=== PATIENT | male | born 1970 | race African-American/Black ===

== ENCOUNTER 2016-09-12 17:21 | Emergency (ER) | payer MEDICAID ==
[~2016-09-12] VITALS: Ht 175.3 cm; Wt 82.0 kg
[2016-09-12] MEDS ORDERED: SODIUM CHLORIDE 0.9% 1,000 ML IV ONE (19:07)
[2016-09-12] MEDS ORDERED: KETOROLAC 30MG/ML VIAL IV STA (19:07)
[2016-09-12 19:28] LABS: BASOPHILS % 0.5 % (0.0-2.0); DIFFERENTIAL COMMENT 0; EOSINOPHILS % 3.9 % (0.0-5.0); HEMATOCRIT. 36.8 % (42.0-52.0); HEMOGLOBIN. 12.2 g/dL (14.0-18.0); LYMPHOCYTES % 34.7 % (20.0-50.0); MEAN CORPUSCULAR HEMOGLOBIN 25.5 pg (28.0-32.0); MEAN CORPUSCULAR HGB CONC 33.2 g/dL (31.0-37.0); MEAN PLATELET VOLUME 7.8 fl (7.4-10.4); NEUTROPHILS % 50.9 % (40.0-76.0); PLATELET 203 x1000/uL (130-400); RED BLOOD CELL COUNT 4.78 mill/uL (4.7-6.1); RED CELL DISTRIBUTION WIDTH 14.8 % (11.6-14.6)
[2016-09-12 19:30] LABS: CHLORIDE 104 mEq/L (98-107); INDEX HEMOLYSI 1 (1-3); INDEX ICTERIC 1 (1-4); INDEX LIPEMIC 1 (1-3)
[2016-09-12 19:35] LABS: ALBUMIN 3.5 g/dL (3.4-5.0); ANION GAP 10; CALCIUM 8.4 mg/dL (8.5-10.1); CARBON DIOXIDE 30 mEq/L (21-32); UREA NITROGEN BLOOD 18 mg/dL (7-21)
[2016-09-12 19:37] LABS: ALANINE AMINOTRANSFERASE 15 IU/L (13-61); eGFR > 60 mL/min (>60)
[2016-09-12 19:43] LABS: CREATINE KINASE MB FRACTION 0.8 ng/mL (0.5-3.6)
[2016-09-12 20:22] LABS: CLARITY URINE CLEAR (CLEAR); COLOR URINE YELLOW (YELLOW); GLUCOSE URINE NEGATIVE (NEGATIVE); KETONES URINE NEGATIVE (NEGATIVE); LEUKOCYTE ESTERASE URINE NEGATIVE (NEGATIVE); NITRITE URINE NEGATIVE (NEGATIVE); OCCULT BLOOD URINE NEGATIVE (NEGATIVE); PH URINE 6.5 (4.5-8.0); PROTEIN URINE NEGATIVE (NEGATIVE); SPECIFIC GRAVITY URINE 1.029 (1.005-1.030)
[2016-09-12 21:04] LABS: *AMPHETAMINES SCREEN URINE NEGATIVE (NEGATIVE); *BARBITURATES SCREEN URINE NEGATIVE (NEGATIVE); *BENZODIAZEPINES SCREEN URINE NEGATIVE (NEGATIVE); *COCAINE SCREEN URINE NEGATIVE (NEGATIVE); CANNABINOID URINE SCREEN PRESUMTIVE POSITIVE (NEGATIVE); ECSTASY MDMA SCREEN URINE NEGATIVE (NEGATIVE); METHADONE URINE SCREEN NEGATIVE (NEGATIVE); OPIATES URINE SCREEN NEGATIVE (NEGATIVE); PHENCYCLIDINE URINE SCREEN NEGATIVE (NEGATIVE)
[2016-09-12] MEDS ORDERED: DIPHENHYDRAMINE 25MG CAPSULE PO ONE (22:15)
[2016-09-13] MEDS ORDERED: LORAZEPAM 2MG/ML CPJ IV ONE (00:15)
[2016-09-13 00:25] VITALS: BP 139/74
[2016-09-13] MEDS ORDERED: LORAZEPAM 1MG TABLET PO ONE (00:30)
[2016-09-13] MEDS ORDERED: LORAZEPAM 2MG/ML CPJ IM ONE (00:30)
== END 2016-09-13 00:40 | disposition home or self-care (01) ==
LOC: ER 17:22
DX: D50.9 Iron deficiency anemia, unspecified (principal); R53.1 Weakness; R51 Headache; I10 Essential (primary) hypertension; F17.210 Nicotine dependence, cigarettes, uncomplicated; F12.10 Cannabis abuse, uncomplicated
CPT/HCPCS: 36415; 71010; 80053; 80305; 81003; 82553; 82962; 84443; 85025; 93005; 96361; 96374; 99285; J1885; J7030; Z7610; Q0163

== ENCOUNTER 2022-02-21 22:14 | Emergency (ER) | payer MEDICAID ==
[~2022-02-21] VITALS: Ht 177.8 cm; Wt 90.0 kg
[2022-02-21 22:31] VITALS: BP 168/98
== END 2022-02-22 01:06 | disposition left against medical advice (07) ==
LOC: ER 22:14
DX: Z53.21 Procedure and treatment not carried out due to patient leaving prior to being seen by health care provider (principal)